=== PATIENT | female | born 1955 | race African-American/Black ===

== ENCOUNTER → 2017-03-23 | Outpatient (CLI) | payer OTHER ==
[2014-10-22 14:35] VITALS: BP 137/83
--- NOTE | 2017-03-23 16:55 | RAD ---
2 views left hip 03/23/2017 Clinical indication: Bilateral hip pain. Comparison: Left hip 07/05/2012. Findings: No acute fracture or traumatic malalignment of the left hip. The femoral head is round without collapse. Mild left hip osteoarthritis with osteophytic spurring. Impression: 1. No acute osseous abnormality. 2. Mild left hip osteoarthritis.
--- NOTE | 2017-03-23 16:56 | RAD ---
Two-view right hip 03/23/2017 Clinical indication: Right hip pain. Comparison: None. Findings: No acute fracture or dislocation identified. Mild right hip posterior osteoarthritis with osteophytic spurring and subchondral sclerosis. The periarticular soft tissues are unremarkable. Impression: 1. No acute osseous abnormality. 2. Mild right hip osteoarthritis.
== END | disposition home or self-care (01) ==
LOC: DXRAD 15:48
PROVIDERS: ATTEND Family Medicine
DX: M16.0 Bilateral primary osteoarthritis of hip (principal); F17.200 Nicotine dependence, unspecified, uncomplicated
CPT/HCPCS: 73502

== ENCOUNTER → 2019-11-01 | Outpatient (CLI) | payer OTHER ==
[2014-10-22 14:35] VITALS: BP 137/83
--- NOTE | 2019-11-06 12:03 | RAD ---
DATE: 11/01/2019 9:10 AM EXAM: MAMMO [facility]TON[facility] SCREENING BILATERAL HISTORY: Screening COMPARISON: None. This will serve as a new baseline. Bilateral CC and MLO views of the breasts were performed. Bilateral breast tomosynthesis was performed in CC and MLO projections. This study was interpreted with the benefit of Computerized Aided Detection (CAD). FINDINGS: Breast Density: SCATTERED The breast parenchyma shows scattered fibroglandular densities. Breast parenchyma level B No suspicious masses, microcalcifications or architectural distortion is present to suggest malignancy in either breast. The visualized axillae are unremarkable. IMPRESSION: No mammographic evidence of malignancy. BI-RADS CATEGORY: 1 NEGATIVE RECOMMENDED FOLLOW-UP: 12M 12 MONTH FOLLOW-UP Annual screening mammography is recommended, unless clinically indicated sooner based on symptoms or change in physical exam. PQRS compliance statement: Patient information was entered into a reminder system with a target due date for the next mammogram. Mammography is a sensitive method for finding small breast cancers, but it does not detect them all and is not a substitute for careful clinical examination. A negative mammogram does not negate a clinically suspicious finding and should not result in delay in biopsying a clinically suspicious abnormality. "Our facility is accredited by the [employer] Mammography [employer]."
== END | disposition home or self-care (01) ==
LOC: MAMMO 08:52
PROVIDERS: ATTEND Family Medicine
DX: Z12.31 Encounter for screening mammogram for malignant neoplasm of breast (principal)
CPT/HCPCS: 77063; 77067

== ENCOUNTER → 2020-11-11 | Outpatient (CLI) | payer MEDICARE, OTHER ==
[2014-10-22 14:35] VITALS: BP 137/83
--- NOTE | 2020-11-11 09:41 | RAD ---
Exam performed: Right ankle 3 views. Indication: Right ankle pain Date of Service: 11/11/2020 9:10 AM. Comparison: None available Three views right ankle findings: Normal alignment of the ankle mortise is preserved. There is no acute fracture or dislocation. There is no soft tissue swelling or foreign body. Impression: No acute bony abnormality seen. Electronically signed by: Bronwyn Ferro MD (11/11/2020 9:38 AM) [id number]
== END ==
LOC: PMG 08:49
PROVIDERS: ATTEND Physician Assistant
DX: M25.571 Pain in right ankle and joints of right foot (principal)
CPT/HCPCS: 73610